=== PATIENT | female | born 1935 | race Caucasian/White ===

== ENCOUNTER 2021-06-06 10:16 | Emergency (ER) | payer MEDICARE, BC ==
[2021-06-06 11:06] LABS: PTT,PARTIAL THROMBOPLSTIN TIME 25.4 SEC (25.6-32.8)
[2021-06-06 11:15] LABS: CHLORIDE,CL 106 mmol/L (98-107); SODIUM,NA 144 mmol/L (136-145)
[2021-06-06 11:16] LABS: ANION GAP 12.6 mmol/L (5-15)
== END 2021-06-06 11:58 | disposition home or self-care (01) ==
LOC: VM.ED 10:16
DX: R00.2 Palpitations (principal); F41.9 Anxiety disorder, unspecified; Z88.5 Allergy status to narcotic agent; Z88.8 Allergy status to other drugs, medicaments and biological substances; Z79.899 Other long term (current) drug therapy; Z79.01 Long term (current) use of anticoagulants
CPT/HCPCS: 36415; 71046; 80053; 83880; 84443; 84484; 85025; 85610; 85730; 93005; 99285-25